=== PATIENT | female | born 1995 | race Two or more races ===

== ENCOUNTER 2022-02-21 13:10 | Emergency (ER) | payer OTHER ==
[~2022-02-21] VITALS: Ht 170.2 cm; Wt 69.4 kg
== END 2022-02-21 16:11 | disposition home or self-care (01) ==
LOC: ER 13:10
DX: O98.512 Other viral diseases complicating pregnancy, second trimester (principal); B34.9 Viral infection, unspecified; Z3A.18 18 weeks gestation of pregnancy; Z20.822 Contact with and (suspected) exposure to COVID-19

== ENCOUNTER 2022-07-09 11:45 | Inpatient (IN) | payer OTHER ==
[~2022-07-09] VITALS: Ht 167.6 cm; Wt 83.0 kg
[2022-07-09] MEDS ORDERED: PRENAT PO (13:14)
[2022-07-12] MEDS ORDERED: PRENATAL + DHA1 EAC1 PO (07:54)
[2022-07-13] MEDS ORDERED: RHOGAM ULTR1500 UNIT IM (14:30)
[2022-07-14] MEDS ORDERED: IBUPROFEN800 MG PO (09:28)
== END 2022-07-14 14:02 | disposition home or self-care (01) | DRG 788 ==
LOC: OB/GYN 07-12 05:30 → O/R 07-12 05:30 → OB/GYN 07-12 07:00
PROVIDERS: ADMIT Specialist; ATTEND Specialist
PROC: 4A1HXCZ Monitoring of Products of Conception, Cardiac Rate, External Approach (ICD-10-PCS; 2022-07-12)
PROC: 10D00Z1 Extraction of Products of Conception, Low, Open Approach (ICD-10-PCS; principal; 2022-07-12 07:00)
DX: O34.211 Maternal care for low transverse scar from previous cesarean delivery (principal); Z3A.38 38 weeks gestation of pregnancy; Z37.0 Single live birth; Z20.822 Contact with and (suspected) exposure to COVID-19